=== PATIENT | male | born 1950 | race Caucasian/White ===

== ENCOUNTER 2018-11-23 15:29 | Observation (INO) | payer MEDICARE, BC ==
[2018-11-23 16:03] LABS: CHLORIDE,CL 106 mEq/L (98-106); SODIUM,NA 143 mEq/L (136-145)
[2018-11-23] MEDS ORDERED: Iopamidol 755 Mg/ML 100 ML Bottle IVPUSH ONE ×2 (16:35→17:04)
[2018-11-23] MEDS ORDERED: Sodium Chloride 0.9% 10 ML Syringe FLUSH PRN (18:58)
[2018-11-23] MEDS ORDERED: Ondansetron 4 MG/2 ML SDV IV PRN (18:58)
[2018-11-23] MEDS ORDERED: Ondansetron 4 MG Tab.DIS PO PRN (18:58)
[2018-11-23] MEDS ORDERED: Magnesium Hydroxide 400 MG/5 ML Susp 30 ML Cup PO PRN (18:58)
[2018-11-23] MEDS ORDERED: Temazepam 15 MG Cap PO PRN (18:58)
[2018-11-23] MEDS ORDERED: Albuterol 0.083% 2.5 MG/3 ML Neb Soln NEB PRN (18:58)
[2018-11-23] MEDS ORDERED: Azithromycin 250 MG Tab PO SCH (20:00)
[2018-11-23] MEDS ORDERED: Simvastatin 40 MG Tab PO SCH (20:00)
[2018-11-23] MEDS: TAMSULOSIN 0.4 MG PO SCH (20:45)
[2018-11-23] MEDS: Enoxaparin 40 MG/0.4 ML Syringe SUBCUT SCH (20:46)
[2018-11-23] MEDS: Aspirin 81 MG Tab.EC PO SCH ×2 (20:46→21:42)
[2018-11-23] MEDS: methylPREDNISolone Sodium Succinate 125 MG/2 ML SDV IVPUSH SCH (20:48)
[2018-11-23] MEDS: cefTRIAXone 1 GM Vial IVPUSH SCH (20:49)
[2018-11-23] MEDS: Albuterol/Ipratropium 3.0-0.5 MG/3 ML Neb Soln NEB SCH (20:58)
[2018-11-23] MEDS: PRAMIPEXOLE 0.5 MG PO SCH (22:32)
[2018-11-24 07:16] LABS: CHLORIDE,CL 104 mEq/L (98-106); SODIUM,NA 140 mEq/L (136-145)
[2018-11-24] MEDS: methylPREDNISolone Sodium Succinate 125 MG/2 ML SDV IVPUSH SCH ×2 (07:39→19:46)
[2018-11-24] MEDS: Albuterol/Ipratropium 3.0-0.5 MG/3 ML Neb Soln NEB SCH ×4 (07:40→19:51)
[2018-11-24] MEDS ORDERED: ALLOPURINOL 100 MG PO SCH (08:00)
[2018-11-24] MEDS: PRAMIPEXOLE 0.5 MG PO SCH ×2 (16:11→21:36)
--- NOTE | 2018-11-24 17:00 | PCM.PN ---
- General Info Date of Service: 11/24/18 Admission Dx/Problem (Free Text): Acute Bronchitis Functional Status: Reports: Pain Controlled, Tolerating Diet, Ambulating - Review of Systems General: Reports: Fever, Weakness, Fatigue, Malaise HEENT: Reports: Post Nasal Drip, Sinus Congestion, Rhinitis, Other (hoarseness) . Denies: Ear Pain, Sore Throat Pulmonary: Reports: Shortness of Breath, Cough. Denies: Wheezing Cardiovascular: Denies: Chest Pain, Edema, Lightheadedness Gastrointestinal: Reports: Nausea, Vomiting. Denies: Abdominal Pain Genitourinary: Reports: No Symptoms Musculoskeletal: Reports: No Symptoms Skin: Reports: No Symptoms Neurological: Reports: No Symptoms Psychiatric: Reports: No Symptoms - Patient Data Vitals - Most Recent: Last Vital Signs Temp 98.3 F 11/24/18 15:37 Pulse 100 11/24/18 15:37 Resp 20 11/24/18 15:37 BP 129/61 11/24/18 15:37 Pulse Ox 95 11/24/18 15:37 Weight - Most Recent: 235 lb Lab Results Last 24 Hours: Laboratory Results - last 24 hr 11/24/18 11/24/18 Range/Units 06:50 06:50 WBC 10.7 H (5.0-10.0) 10^3/uL RBC 5.10 (4.50-6.00) 10^6/uL Hgb 16.8 (14.0-18.0) g/dL Hct 47.6 (40.0-54.0) % MCV 93.3 (82.0-94.0) fL MCH 32.9 H (27.0-32.0) pg MCHC 35.3 (33.0-38.0) g/dL RDW Coeff of Estephania 12.7 (11.0-15.0) % Plt Count 212 (150-400) 10^3/uL Add Manual Diff Yes Neutrophils % (Manual) 84 (35-85) % Lymphocytes % (Manual) 16 L (21-55) % Absolute Neutrophils 8.99 H (1.80-7.00) 10^3/uL Lymphocytes # (Manual) 1.71 (1.00-4.80) 10^3/uL Sodium 140 (136-145) mEq/L Potassium 4.4 (3.5-5.0) mEq/L Chloride 104 (98-106) mEq/L Carbon Dioxide 24 (21-32) mmol/L BUN 17 (7-18) mg/dL Creatinine 1.1 (0.7-1.3) mg/dL Est Cr Clr Drug Dosing 66.06 mL/min Estimated GFR (MDRD) > 60 (>=60) mL/min Glucose 158 H (75-99) mg/dL Calcium 9.1 (8.4-10.1) mg/dL C-Reactive Protein < 0.2 L (0.2-0.8) mg/dL Med Orders - Current: Current Medications Albuterol (Proventil Neb Soln) 2.5 mg NEB Q4H PRN PRN Reason: Dyspnea Albuterol/Ipratropium (Duoneb 3.0-0.5 Mg/3 Ml) 3 ml NEB QIDRT [facility] Last Admin: 11/24/18 16:10 Dose: 3 ml Allopurinol (Zyloprim) 200 mg PO DAILY [facility] Last Admin: 11/24/18 10:22 Dose: Not Given Aspirin (Halfprin) 81 mg PO BEDTIME [facility] Last Admin: 11/23/18 21:42 Dose: 81 mg Ceftriaxone Sodium (Rocephin) 1 gm IVPUSH Q24H [facility] Last Admin: 11/23/18 20:49 Dose: 1 gm Enoxaparin Sodium (Lovenox) 40 mg SUBCUT Q24H [facility] Last Admin: 11/23/18 20:46 Dose: 40 mg Guaifenesin (Organ-I Nr) 600 mg PO BID [facility] Magnesium Hydroxide (Milk Of Magnesia) 30 ml PO Q12H PRN PRN Reason: Constipation Methylprednisolone Sodium Succinate (Solu-Medrol) 62.5 mg IVPUSH Q12H [facility] Last Admin: 11/24/18 07:39 Dose: 62.5 mg Ptom Rosuvastatin [ Crestor] 10mg 1 each PO BEDTIME [facility] Ondansetron HCl (Zofran Odt) 4 mg PO Q4H PRN PRN Reason: nausea, able to take PO Ondansetron HCl (Zofran) 4 mg IV Q4H PRN PRN Reason: Nausea/Vomiting Pramipexole Dihydrochloride (Mirapex) 1 mg PO 1700,2200 [facility] Last Admin: 11/24/18 16:11 Dose: 1 mg Sodium Chloride (Saline Flush) 10 ml FLUSH ASDIRECTED PRN PRN Reason: Keep Vein Open Tamsulosin HCl (Flomax) 0.4 mg PO BEDTIME [facility] Last Admin: 11/23/18 20:45 Dose: Not Given Temazepam (Restoril) 15 mg PO BEDTIME PRN PRN Reason: Sleep Discontinued Medications Azithromycin (Zithromax) 500 mg PO DAILY@1999 [facility] Iopamidol (Isovue-370 (76%)) 100 ml IVPUSH ONETIME ONE Stop: 11/23/18 16:36 Last Admin: 11/23/18 16:49 Dose: 100 ml Iopamidol (Isovue-370 (76%)) 80 ml IVPUSH ONETIME ONE Stop: 11/23/18 17:05 Last Admin: 11/23/18 17:13 Dose: 80 ml Simvastatin (Zocor) 40 mg PO BEDTIME [facility] Last Admin: 11/23/18 20:53 Dose: Not Given - Exam General: Alert, Oriented HEENT: Mucous Membr. Moist/[place] Neck: Supple Lungs: Decreased Breath Sounds Cardiovascular: Regular Rate, Regular Rhythm GI/Abdominal Exam: Normal Bowel Sounds, Soft, Non-Tender Extremities: Normal Inspection, No Pedal Edema Skin: Warm, Dry Neurological: No New Focal Deficit - Problem List & Annotations (1) Bronchitis SNOMED Code(s): 70309312 Code(s): J40 - BRONCHITIS, NOT SPECIFIED ACUTE OR CHRONIC Status: Acute Priority: High Current Visit: Yes - Problem List Review Problem List Initiated/Reviewed/Updated: Yes - My Orders Last 24 Hours: My Active Orders 11/23/18 18:58 Patient Status [ADT] Routine Oxygen Therapy [RC] .PRN Up ad Pau [RC] .PRN Vital Signs [RC] 0000,0400,0800,1200,1600,2000 Albuterol [Proventil Neb Soln] 2.5 mg NEB Q4H PRN Magnesium Hydroxide [Milk of Magnesia] 30 ml PO Q12H PRN Ondansetron [Zofran ODT] 4 mg PO Q4H PRN Ondansetron [Zofran] 4 mg IV Q4H PRN Sodium Chloride 0.9% [Saline Flush] 10 ml FLUSH ASDIRECTED PRN Temazepam [Restoril] 15 mg PO BEDTIME PRN Saline Lock Insert [OM.PC] Routine Resuscitation Status Routine 11/23/18 19:01 RT Aerosol Therapy [RC] 0800,1200,1600,199911/23/18 20:00 Albuterol/Ipratropium [DuoNeb 3.0-0.5 MG/3 ML] 3 ml NEB QIDRT Aspirin [Halfprin] 81 mg PO BEDTIME Enoxaparin [Lovenox] 40 mg SUBCUT Q24H Tamsulosin [Flomax] 0.4 mg PO BEDTIME cefTRIAXone [Rocephin] 1 gm IVPUSH Q24H methylPREDNISolone Sod Succ [Solu-MEDROL] 62.5 mg IVPUSH Q12H 11/23/18 22:00 Pramipexole [Mirapex] 1 mg PO 1700,2200 11/24/18 08:00 Allopurinol [Zyloprim] 200 mg PO DAILY 11/24/18 20:00 Non-Formulary Medication [NF Drug] 1 each PO BEDTIME guaiFENesin [Organ-I NR] 600 mg PO BID 11/24/18 Breakfast Regular Diet [DIET] 11/25/18 05:11 BASIC METABOLIC PANEL,BMP [CHEM] AM C-REACTIVE PROTEIN [CHEM] AM CBC WITH AUTO DIFF [HEME] AM - Assessment Assessment:: Acute Bronchitis - Plan Plan:: Patient admits to not feeling much better today. Continues to have frequent cough, productive at times. States abdomen and chest are "sore" from coughing. Was nauseated last evening, did have emesis. Low grade fevers. Feels mildly short of breath with activity, oxygen sats are good. Labs show mild elevation now of WBC at 10.7, likely due to steroids as no left shift, CRP negative. Will continue with current IV meds. Add Mucinex. Obtain fungal panel as patient as had persistent symptoms for the last 3 weeks. Repeat labs in am. Possible discharge home tomorrow if improved.
[2018-11-24] MEDS ORDERED: Acetaminophen 325 MG Tab PO PRN (17:04)
[2018-11-24] MEDS: TAMSULOSIN 0.4 MG PO SCH (19:40)
[2018-11-24] MEDS: Aspirin 81 MG Tab.EC PO SCH (19:40)
[2018-11-24] MEDS: guaiFENesin 200 MG Tab PO SCH (19:41)
[2018-11-24] MEDS: Enoxaparin 40 MG/0.4 ML Syringe SUBCUT SCH (19:42)
[2018-11-24] MEDS: cefTRIAXone 1 GM Vial IVPUSH SCH (19:47)
[2018-11-24] MEDS ORDERED: ROSUVASTATIN 10 MG PO SCH (20:00)
[2018-11-25 07:36] LABS: CHLORIDE,CL 105 mEq/L (98-106); SODIUM,NA 140 mEq/L (136-145)
[2018-11-25] MEDS: Albuterol/Ipratropium 3.0-0.5 MG/3 ML Neb Soln NEB SCH (08:12)
[2018-11-25] MEDS: guaiFENesin 200 MG Tab PO SCH (08:12)
[2018-11-25] MEDS: methylPREDNISolone Sodium Succinate 125 MG/2 ML SDV IVPUSH SCH (08:16)
[2018-11-25 09:22] VITALS: BP 127/80
--- NOTE | 2018-11-25 22:26 | PCM.DCSUM1 ---
Discharge Summary - Hospital Course Free Text/Narrative:: Patient presented to Dr. Kwan for ongoing cough. Has pain in abdomen and chest wall due to frequency of harsh cough. Has been treated x2 with Ceftin and Doxycycline, course of prednisone and prometh with codeine. Has just not felt any improvement. No fevers. Labs were done, normal CBC, P8 and negative CRP. Chest xray unremarkable. D-Dimer was elevated at 3.7. Admitted and CTA of chest done. Started on IV Rocephin and steroids. Nebs QID Diagnosis: Stroke: No Modified Mahesh Scale: No Symptoms at All Modified [place] Scale Score: 0 - Discharge Data Discharge Date: 11/25/18 Discharge Disposition: Home, Self-Care 01 Condition: Good - Discharge Diagnosis/Problem(s) (1) Bronchitis SNOMED Code(s): 53706747 ICD Code: J40 - BRONCHITIS, NOT SPECIFIED ACUTE OR CHRONIC Status: Acute Priority: High - Patient Summary/Data Complications: none Hospital Course: Patient feeling much of the same but "feels ready to be home". Has not seen much improvement yet from the steroids or nebs. Labs have all remained stable. CT scan negative. Has remained afebrile. Still does have frequent cough. Are obtaining a fungal panel to rule out other source of ongoing cough. Will discharge home on Mucinex BID and nebs for the next week. Follow up with Dr. Kwan in 2 weeks. - Patient Instructions Diet: Usual Diet as Tolerated Activity: As Tolerated - Discharge Plan *PRESCRIPTION DRUG MONITORING PROGRAM REVIEWED*: No *COPY OF PRESCRIPTION DRUG MONITORING REPORT IN PATIENT [place]: No Prescriptions/Med Rec: Albuterol/Ipratropium [DuoNeb 3.0-0.5 MG/3 ML] 3 ml NEB QIDRT #28 [facility] guaiFENesin [Organ-I NR] 600 mg PO BID #20 tablet Home Medications: Home Meds Aspirin [Halfprin] 81 mg PO BEDTIME 09/20/14 [History] Pramipexole Di-HCl [Mirapex] 1 mg PO 1700,2200 09/20/14 [History] Rosuvastatin Calcium [Crestor] 10 mg PO BEDTIME 09/20/14 [History] Allopurinol [Zyloprim] 200 mg PO DAILY 11/23/18 [History] Tamsulosin [Flomax] 0.4 mg PO BEDTIME 11/23/18 [History] Albuterol/Ipratropium [DuoNeb 3.0-0.5 MG/3 ML] 3 ml NEB QIDRT #28 neb 11/25/18 [ Rx] guaiFENesin [Organ-I NR] 600 mg PO BID #20 tablet 11/25/18 [Rx] Patient Handouts: Acute Bronchitis, Adult Referrals: Ruben Kwan MD [Primary Care Provider] - (Recheck in [address] Kwan) - Discharge Summary/Plan Comment DC Time >30 min.: No - General Info Date of Service: 11/25/18 Admission Dx/Problem (Free Text: Acute Bronchitis Functional Status: Reports: Pain Controlled, Tolerating Diet, Ambulating - Review of Systems General: Reports: Malaise. Denies: Fever, Weakness, Fatigue HEENT: Reports: Rhinitis. Denies: Sore Throat Pulmonary: Reports: Shortness of Breath, Cough. Denies: Wheezing Cardiovascular: Denies: Chest Pain, Edema, Lightheadedness Gastrointestinal: Denies: Abdominal Pain, Nausea, Vomiting Genitourinary: Reports: No Symptoms Musculoskeletal: Reports: No Symptoms Skin: Reports: No Symptoms Neurological: Reports: No Symptoms Psychiatric: Reports: No Symptoms - Patient Data Vitals - Most Recent: Last Vital Signs Temp 98.1 F 11/25/18 08:00 Pulse 94 11/25/18 08:00 Resp 20 11/25/18 08:00 BP 127/80 11/25/18 08:00 Pulse Ox 93 L 11/25/18 08:00 Weight - Most Recent: 235 lb Lab Results - Last 24 hrs: Laboratory Results - last 24 hr 11/25/18 11/25/18 Range/Units 07:05 07:05 WBC 16.5 H (5.0-10.0) 10^3/uL RBC 4.64 (4.50-6.00) 10^6/uL Hgb 15.5 (14.0-18.0) g/dL Hct 43.6 (40.0-54.0) % MCV 94.0 (82.0-94.0) fL MCH 33.4 H (27.0-32.0) pg MCHC 35.6 (33.0-38.0) g/dL RDW Coeff of Estephania 12.8 (11.0-15.0) % Plt Count 198 (150-400) 10^3/uL Neut % (Auto) 89.1 H (35-85) % Lymph % (Auto) 6.1 L (10-55) % Greer % (Auto) 4.8 (0-16) % Eos % (Auto) 0 (0-5) % Baso % (Auto) 0 (0-3) % Neut # (Auto) 14.70 H (1.80-7.00) 10^3/uL Lymph # (Auto) 1.00 (1.00-4.80) 10^3/uL [place] # (Auto) 0.79 (0.00-0.80) 10^3/uL Eos # (Auto) 0.00 (0.00-0.45) 10^3/uL Baso # (Auto) 0.00 10^3/uL Sodium 140 (136-145) mEq/L Potassium 4.7 (3.5-5.0) mEq/L Chloride 105 (98-106) mEq/L Carbon Dioxide 24 (21-32) mmol/L BUN 23 H (7-18) mg/dL Creatinine 1.0 (0.7-1.3) mg/dL Est Cr Clr Drug Dosing 72.66 mL/min Estimated GFR (MDRD) > 60 (>=60) mL/min Glucose 162 H (75-99) mg/dL Calcium 9.4 (8.4-10.1) mg/dL C-Reactive Protein < 0.2 L (0.2-0.8) mg/dL Med Orders - Current: Current Medications Discontinued Medications Acetaminophen (Tylenol) 650 mg PO Q6H PRN PRN Reason: Temperature Albuterol (Proventil Neb Soln) 2.5 mg NEB Q4H PRN PRN Reason: Dyspnea Albuterol/Ipratropium (Duoneb 3.0-0.5 Mg/3 Ml) 3 ml NEB QIDRT [facility] Last Admin: 11/25/18 08:12 Dose: 3 ml Allopurinol (Zyloprim) 200 mg PO DAILY [facility] Last Admin: 11/24/18 10:22 Dose: Not Given Aspirin (Halfprin) 81 mg PO BEDTIME [facility] Last Admin: 11/24/18 19:40 Dose: 81 mg Azithromycin (Zithromax) 500 mg PO DAILY@1999 [facility] Ceftriaxone Sodium (Rocephin) 1 gm IVPUSH Q24H [facility] Last Admin: 11/24/18 19:47 Dose: 1 gm Enoxaparin Sodium (Lovenox) 40 mg SUBCUT Q24H [facility] Last Admin: 11/24/18 19:42 Dose: 40 mg Guaifenesin (Organ-I Nr) 600 mg PO BID [facility] Last Admin: 11/25/18 08:12 Dose: 600 mg Iopamidol (Isovue-370 (76%)) 100 ml IVPUSH ONETIME ONE Stop: 11/23/18 16:36 Last Admin: 11/23/18 16:49 Dose: 100 ml Iopamidol (Isovue-370 (76%)) 80 ml IVPUSH ONETIME ONE Stop: 11/23/18 17:05 Last Admin: 11/23/18 17:13 Dose: 80 ml Magnesium Hydroxide (Milk Of Magnesia) 30 ml PO Q12H PRN PRN Reason: Constipation Methylprednisolone Sodium Succinate (Solu-Medrol) 62.5 mg IVPUSH Q12H [facility] Last Admin: 11/25/18 08:16 Dose: 62.5 mg Ptom Rosuvastatin [ Crestor] 10mg 1 each PO BEDTIME [facility] Last Admin: 11/24/18 19:41 Dose: 1 each Ondansetron HCl (Zofran Odt) 4 mg PO Q4H PRN PRN Reason: nausea, able to take PO Ondansetron HCl (Zofran) 4 mg IV Q4H PRN PRN Reason: Nausea/Vomiting Pramipexole Dihydrochloride (Mirapex) 1 mg PO 1700,2200 [facility] Last Admin: 11/24/18 21:36 Dose: 1 mg Simvastatin (Zocor) 40 mg PO BEDTIME [facility] Last Admin: 11/23/18 20:53 Dose: Not Given Sodium Chloride (Saline Flush) 10 ml FLUSH ASDIRECTED PRN PRN Reason: Keep Vein Open Tamsulosin HCl (Flomax) 0.4 mg PO BEDTIME [facility] Last Admin: 11/24/18 19:40 Dose: 0.4 mg Temazepam (Restoril) 15 mg PO BEDTIME PRN PRN Reason: Sleep - Exam General: Reports: Alert, Oriented HEENT: Reports: Mucous Membr. Moist/[place] Neck: Reports: Supple Lungs: Reports: Clear to Auscultation, Normal Respiratory Effort Cardiovascular: Reports: Regular Rate, Regular Rhythm GI/Abdominal Exam: Normal Bowel Sounds, Soft, Non-Tender Extremities: Normal Inspection, No Pedal Edema Skin: Reports: Warm, Dry Neurological: Reports: No New Focal Deficit
== END 2018-11-25 11:00 | disposition home or self-care (01) ==
LOC: CC.FCMC 15:29 → CC.MS 15:29 → INTOOBSV 16:21 → UNDOADMOB 16:21 → CC.MS 18:58
PROVIDERS: ADMIT Family Medicine; ATTEND Family Medicine
DX: J20.9 Acute bronchitis, unspecified (principal); R79.89 Other specified abnormal findings of blood chemistry; E78.5 Hyperlipidemia, unspecified; K21.9 Gastro-esophageal reflux disease without esophagitis; M10.9 Gout, unspecified; H91.92 Unspecified hearing loss, left ear; Z79.82 Long term (current) use of aspirin; Z79.899 Other long term (current) drug therapy; Z88.5 Allergy status to narcotic agent; Z88.1 Allergy status to other antibiotic agents; Z88.8 Allergy status to other drugs, medicaments and biological substances; Z98.890 Other specified postprocedural states
CPT/HCPCS: 36415; 71046; 71275; 80048; 82550; 83880; 84484; 85025; 85379; 86140; 93005; 93010; 94640; 96372; 96374; 96376; 99217; 99220; 99225; A9270-GY; G0378; G0379; J0696; J1650; J2930; J7620-GY; Q9967